=== PATIENT | male | born 1990 | race Caucasian/White ===

== ENCOUNTER 2017-02-03 14:56 | Emergency (ER) | payer OTHER ==
[~2017-02-03] VITALS: Ht 170.2 cm; Wt 70.7 kg
[2017-02-03 15:04] VITALS: TEMP 36.6; Ht 170.2 cm; Wt 70.7 kg
[2017-02-03] MEDS ORDERED: MoRPHine SULFATE 10 MG/ML CARP/VIAL IV STA ×2 (15:56→16:54)
[2017-02-03] MEDS ORDERED: SODIUM CHLORIDE 0.9% 1000ML 1,000 ML IV STA (15:56)
[2017-02-03] MEDS ORDERED: ONDANSETRON INJ 2 MG/ML 2 ML VIAL IV STA (15:56)
[2017-02-03 16:19] LABS: BASO % 0.2 %; BASO ABS # 0.03 K/uL (0-0.2); COMPLETE YES; EOS % 0.4 %; IG% 0.2 %; LYMPH % 10.7 %; LYMPH ABS # 1.34 K/uL (1.2-3.4); MEAN CELL VOLUME 76.1 fL (80-100); MEAN CORPUSCULAR HEMOGLOBIN 26.6 pg (25-34); MONO % 5.9 %; NEUT % 82.6 %; PLATELET COUNT 206 K/uL (130-400); RED BLOOD COUNT 5.78 M/uL (4.7-6.1); WHITE BLOOD COUNT 12.52 K/uL (4.8-10.8)
[2017-02-03 16:43] LABS: BUN/CREATININE RATIO 19.7 (10-20); CALCIUM 9.5 mg/dl (8.5-10.1); CREATININE 1.3 mg/dl (0.60-1.40); POTASSIUM 3.2 mmol/L (3.5-5.1)
[2017-02-03] MEDS ORDERED: PROCHLORPERAZINE 5 MG/ML 2 ML VIAL IV STA (16:54)
[2017-02-03] MEDS ORDERED: POTASSIUM CHLORIDE 10 MEQ TABCR PO STA (16:56)
[2017-02-03] MEDS ORDERED: OPTIRAY 320 IV PRN (18:00)
--- NOTE | 2017-02-03 18:49 | DIAGNOSTIC IMAGING REPORT ---
CT OF THE ABDOMEN AND PELVIS WITH CONTRAST CLINICAL HISTORY: Nausea, vomiting, diarrhea and left lower quadrant abdominal pain. COMPARISON STUDY: None. TECHNIQUE: Following IV administration of 116 mL of Optiray-320, axial images of the abdomen and pelvis were obtained from the lung bases to the proximal femurs. Images were reviewed in the axial, sagittal, and coronal planes. IV contrast was administered without complication. Oral contrast was administered. CT DOSE: 296.41 mGy.cm FINDINGS: Lung bases are clear. There is no pneumatosis, free air or portal venous gas. The liver, spleen, adrenal glands, right kidney and pancreas are normal. A 2.3 cm lesion arising from the upper pole of the left kidney measures water attenuation. This is consistent with a cyst. There is no hydronephrosis or hydroureter. The caliber and wall thickness of small and large bowel are normal. There is no evidence for a bowel obstruction. A few apparent areas of colonic wall thickening are likely due to underdistention. IMPRESSION: 1. No acute process within the abdomen or pelvis. 2. 2.3 cm left renal cyst. Electronically signed by: Filemon Childress M.D. 02/03/2017 6:48 PM Dictated Date/Time: 02/03/2017 6:42 PM
[2017-02-03 18:58] VITALS: BP 110/53; PULSE 89; O2SAT 97
--- NOTE | 2017-02-03 19:04 | EMERGENCY ROOM VISIT NOTE ---
History First contact with patient: 15:50 Chief Complaint: ABDOMINAL PAIN Stated Complaint: ILLNESS Nursing Triage Summary: Pt presents with left sided abd pain, n/v x 2-3 days. History of Present Illness The patient is a 25 year old male who presents to the Emergency Room with complaints of nausea vomiting and diarrhea which started 3 days ago. The patient states that he was out partying for 2 days and did not sleep. He then finally went to sleep night and Friday when he got up he ate rice and Deluca. Shortly after eating the rice and Deluca he started with his current symptoms. He states they have been ongoing since that time. He got very hungry today and went to [employer] and his symptoms got worse after eating a steak sandwich. The patient denies any urinary symptoms of frequency, urgency or dysuria or hematuria. The patient denies any back pain. The patient does admit to constant left lower quadrant pain which she rates at a 10 out of 10. The patient denies any fever but states he feels chilled. Review of Systems 10 system review was performed and was negative unless stated otherwise history of present illness. Past Medical/Surgical History No significant past medical history Social History Smoking Status: Current Every Day Smoker Alcohol Use: occasionally Occupation Status: [employer] student Current/Historical Medications No Active Prescriptions or Reported Meds Allergies Coded Allergies: No Known Allergies (Unverified , 02/03/17) Physical Exam Vital Signs Date Time Temp Pulse Resp B/P Pulse Ox O2 Delivery O2 Flow Rate FiO2 02/03/17 18:58 89 14 110/53 97 02/03/17 16:19 68 20 134/79 100 Room Air 02/03/17 15:04 36.6 77 18 122/88 99 Room Air Physical Exam GENERAL: 25-year-old male appears uncomfortable secondary to abdominal pain nausea and vomiting MENTAL Status: Alert and oriented 3. EYES: No icterus noted MOUTH: Mucosa is slightly dry. NECK: Supple, no lymphadenopathy noted. No carotid bruits noted. LUNGS: Clear auscultation without wheezes rales or rhonchi. CARDIAC: Regular rate and rhythm without murmur. Pulses is full and equal throughout. BACK: No CVA tenderness noted. ABDOMEN: Positive bowel sounds all 4 quadrants. Soft, left lower quadrant tenderness otherwise nontender to palpation without organomegaly or masses. EXTREMITIES: No cyanosis or edema noted. Medical Decision & Procedures ER Provider Diagnostic Interpretation: CT OF THE ABDOMEN AND PELVIS WITH CONTRAST CLINICAL HISTORY: Nausea, vomiting, diarrhea and left lower quadrant abdominal pain. COMPARISON STUDY: None. TECHNIQUE: Following IV administration of 116 mL of Optiray-320, axial images of the abdomen and pelvis were obtained from the lung bases to the proximal femurs. Images were reviewed in the axial, sagittal, and coronal planes. IV contrast was administered without complication. Oral contrast was administered. CT DOSE: 296.41 mGy.cm FINDINGS: Lung bases are clear. There is no pneumatosis, free air or portal venous gas. The liver, spleen, adrenal glands, right kidney and pancreas are normal. A 2.3 cm lesion arising from the upper pole of the left kidney measures water attenuation. This is consistent with a cyst. There is no hydronephrosis or hydroureter. The caliber and wall thickness of small and large bowel are normal. There is no evidence for a bowel obstruction. A few apparent areas of colonic wall thickening are likely due to underdistention. IMPRESSION: 1. No acute process within the abdomen or pelvis. 2. 2.3 cm left renal cyst. Electronically signed by: Filemon Childress M.D. 02/03/2017 6:48 PM Dictated Date/Time: 02/03/2017 6:42 PM Laboratory Results 02/03/17 16:05 Red Blood Count 5.78, Mean Corpuscular Volume 76.1, Mean Corpuscular Hemoglobin 26.6, Mean Corpuscular Hemoglobin Concent 35.0, Mean Platelet Volume 11.0, Neutrophils (%) (Auto) 82.6, Lymphocytes (%) (Auto) 10.7, Monocytes (%) (Auto) 5.9, Eosinophils (%) (Auto) 0.4, Basophils (%) (Auto) 0.2, Neutrophils # (Auto) 10.34, Lymphocytes # (Auto) 1.34, Monocytes # (Auto) 0.74, Eosinophils # (Auto) 0.05, Basophils # (Auto) 0.03 02/03/17 16:05 Test 02/03/17 16:05 White Blood Count 12.52 K/uL (4.8-10.8) Red Blood Count 5.78 M/uL (4.7-6.1) Hemoglobin 15.4 g/dL (14.0-18.0) Hematocrit 44.0 % (42-52) Mean Corpuscular Volume 76.1 fL (80-100) Mean Corpuscular Hemoglobin 26.6 pg (25-34) Mean Corpuscular Hemoglobin Concent 35.0 g/dl (32-36) Platelet Count 206 K/uL (130-400) Mean Platelet Volume 11.0 fL (7.4-10.4) Neutrophils (%) (Auto) 82.6 % Lymphocytes (%) (Auto) 10.7 % Monocytes (%) (Auto) 5.9 % Eosinophils (%) (Auto) 0.4 % Basophils (%) (Auto) 0.2 % Neutrophils # (Auto) 10.34 K/uL (1.4-6.5) Lymphocytes # (Auto) 1.34 K/uL (1.2-3.4) Monocytes # (Auto) 0.74 K/uL (0.11-0.59) Eosinophils # (Auto) 0.05 K/uL (0-0.5) Basophils # (Auto) 0.03 K/uL (0-0.2) RDW Standard Deviation 37.8 fL (36.4-46.3) RDW Coefficient of Variation 13.7 % (11.5-14.5) Immature Granulocyte % (Auto) 0.2 % Immature Granulocyte # (Auto) 0.02 K/uL (0.00-0.02) Anion Gap 13.0 mmol/L (3-11) Est Creatinine Clear Calc Drug Dose 80.5 ml/min Estimated GFR () 87.3 Estimated GFR (Non- 75.3 BUN/Creatinine Ratio 19.7 (10-20) Calcium Level 9.5 mg/dl (8.5-10.1) Total Bilirubin 0.6 mg/dl (0.2-1) Direct Bilirubin 0.1 mg/dl (0-0.2) Aspartate Amino Transf (AST/SGOT) 12 U/L (15-37) Alanine Aminotransferase (ALT/SGPT) 21 U/L (12-78) Alkaline Phosphatase 57 U/L (45-117) Total Protein 7.8 gm/dl (6.4-8.2) Albumin 4.3 gm/dl (3.4-5.0) Lipase 112 U/L (73-393) Medications Administered Medications (Trade) Dose Ordered Sig/Rahul Route Start Time Stop Time Status Last Admin Dose Admin Sodium Chloride (Nss 1000ml) 1,000 ml @ 999 mls/hr Q1H1M STAT IV 02/03/17 15:56 02/03/17 16:56 DC 02/03/17 16:14 999 MLS/HR Morphine Sulfate (MoRPHine SULFATE INJ) 6 mg NOW STAT IV 02/03/17 15:56 02/03/17 15:58 DC 02/03/17 16:15 6 MG Ondansetron HCl (Zofran Inj) 4 mg NOW STAT IV 02/03/17 15:56 02/03/17 15:58 DC 02/03/17 16:15 4 MG Prochlorperazine Edisylate (Compazine Inj) 10 mg NOW STAT IV 02/03/17 16:54 02/03/17 16:55 DC 02/03/17 17:11 10 MG Morphine Sulfate (MoRPHine SULFATE INJ) 6 mg NOW STAT IV 02/03/17 16:54 02/03/17 16:55 DC 02/03/17 17:12 6 MG Potassium Chloride (Klor-Con M10) 10 meq NOW STAT PO 02/03/17 16:56 02/03/17 16:58 DC 02/03/17 17:11 10 MEQ ED Course The patient was evaluated. IV access was obtained. The patient was given 1 L normal saline wide-open. He was given morphine 6 mg IV and Zofran 4 mg IV push. CBC and differential, renal profile, LFTs and lipase levels was ordered. Urinalysis was ordered. A CT of the abdomen and pelvis with IV and oral contrast was ordered. Patient was reevaluated and was still complaining of nausea and pain. The patient was given Compazine 10 mg IV and morphine 6 mg IV. The patient's labs are reviewed. The patient's white count was slightly elevated. The patient's potassium was low at 3.2. The patient was given 10 mEq of K-Dur. CT of the abdomen and pelvis was interpreted by the radiologist as above without any acute findings. The patient was unable to give a urine sample while in the emergency room. The patient on reevaluation was feeling much better. He did not have any pain or nausea. The patient was discharged home in stable condition. The patient was given a Zofran home pack to take as needed. Medical Decision Differential diagnoses include reflux, gastritis, gastroenteritis, pancreatitis , cholelithiasis, cholecystitis, appendicitis, mesenteric ischemia, pyelonephritis, urinary tract infection, renal colic, diverticulitis, shingles, bowel obstruction, intussusception, hernia, Impression Primary Impression: Acute gastroenteritis Departure Information Dispostion Home / Self-Care Condition GOOD Prescriptions No Active Prescriptions or Reported Meds Referrals No Doctor, Assigned (PCP) Forms HOME CARE DOCUMENTATION FORM, IMPORTANT VISIT INFORMATION Patient Instructions ED Diet [place], ED Diet Vomiting Diarrhea, [facility] Additional Instructions Follow bland diet. Advance diet slowly as tolerated. Drink a lot of water and/ or Gatorade. Take Zofran as needed for nausea. If symptoms return and you experience uncontrolled nausea vomiting and diarrhea, return to ER immediately.
[2017-02-03] MEDS ORDERED: ONDANSETRON HOME PACK 4MG OD TAB PO ONE (19:15)
== END 2017-02-03 19:24 | disposition home or self-care (01) ==
LOC: C.EDB 14:59 → EDBD 14:59 → C.EDC 19:24
DX: K52.9 Noninfective gastroenteritis and colitis, unspecified (principal); F17.200 Nicotine dependence, unspecified, uncomplicated